=== PATIENT | male | born 1985 | race Caucasian/White ===

== ENCOUNTER → 2017-12-03 | Outpatient (CLI) | payer MEDICAID ==
[~2017-12-03] MED LIST: IBUP800T37 PO; MELO-207 PO
--- NOTE | 2017-12-03 14:29 | RADIOLOGY IMAGING REPORT ---
FACILITY: [facility] PATIENT NAME: Reji Sebastian : 1985 MR: [id number] V: [id number] EXAM DATE: [id number] ORDERING PHYSICIAN: JEN WEBER TECHNOLOGIST: Location: [facility] Patient: Reji Sebastian : 1985 Visit/Account:[id number] Date of Sevice: 12/03/2017 Exam type: ANKLE 2 VIEW RIGHT History: ankle sprain Comparison: None. Findings: There is no acute fracture of the right ankle. Mild soft tissue swelling around the lateral malleolu s is noted. Ankle mortise aligns appropriately. Calcaneal heel spurs are noted. IMPRESSION: 1. Mild soft tissue swelling around the lateral malleolus but no acute fracture. Report Dictated By: Stewart Fry MD at 12/03/2017 2:23 PM Report E-Signed By: Stewart Fry MD at 12/03/2017 2:24 PM [id number]
--- NOTE | 2017-12-04 00:29 | RADIOLOGY IMAGING REPORT ---
FACILITY: [facility] [place] PATIENT NAME: Reji Sebastian : 1985 MR: [id number] V: [id number] EXAM DATE: [id number] ORDERING PHYSICIAN: JEN WEBER TECHNOLOGIST: Location: [facility] Patient: Reji Sebastian : 1985 Visit/Account:[id number] Date of Sevice: 12/03/2017 EXAMINATION: SCROTAL ULTRASOUND DATE: 12/03/2017 4:08 PM. INDICATION: Right scrotal pain. TECHNIQUE: Grayscale, color, and pulsed Doppler ultrasound images of the scrotum is performed. COMPARISON: None. FINDINGS: Both testicles are symmetric and normal in echogenicity and size. The right testicle measures 5.1 x 1.9 x 2.9 cm in size and demonstrates normal homogeneous echogenici ty. No focal lesion is seen in the right testicle. The right epididymis is unremarkable. The arterial inflow to the right testicle has normal low resistance. The left testicle measures 5.4 x 2.3 x 3.2 cm in size and demonstrates normal homogeneous echogenicit y. No focal mass is seen in the left testicle. Simple cyst in the periphery of the midportion of the testicle measures 2 mm in diameter. Simple cyst in the left epididymal head measures [address] The arterial inflow to the left testicle has normal low resistance. Bilateral small volume hydroceles. IMPRESSION: 1. No acute abnormality. 2. Bilateral small volume hydroceles. 3. Left-sided epididymal and testicular cysts of doubtful significance. Report Dictated By: Alexei Carver MD at 12/04/2017 12:11 AM Report E-Signed By: Alexei Carver MD at 12/04/2017 12:22 AM WSN:[id number]
== END ==
LOC: RAD 13:43
PROVIDERS: ATTEND Internal Medicine
DX: N43.3 Hydrocele, unspecified (principal); N44.2 Benign cyst of testis; M25.471 Effusion, right ankle
CPT/HCPCS: 76870

== ENCOUNTER → 2017-12-04 | Outpatient (CLI) | payer MEDICAID ==
[2017-12-04 08:55] LABS: PLATELET COUNT, AUTOMATED 239 K/uL (150-450)
[2017-12-04 10:01] LABS: LDL CHOLESTEROL 111 mg/dl
== END ==
LOC: LAB 08:38
PROVIDERS: ATTEND Internal Medicine
DX: Z00.00 Encounter for general adult medical examination without abnormal findings (principal); S93.411D Sprain of calcaneofibular ligament of right ankle, subsequent encounter; N50.811 Right testicular pain
CPT/HCPCS: 36415; 81001; 82040; 82247; 82310; 82374; 82435; 82465; 82565; 82947; 83718; 84075; 84132; 84155; 84295; 84443; 84450; 84460; 84478; 84520; 85025